=== PATIENT | female | born 1950 | race Caucasian/White ===

== ENCOUNTER 2017-11-10 07:03 | Day surgery (SDC) | END 2017-11-10 12:47 | disposition home or self-care (01) | DX: I25.10 Atherosclerotic heart disease of native coronary artery without angina pectoris (principal); R94.31 Abnormal electrocardiogram [ECG] [EKG]; Z79.899 Other long term (current) drug therapy; Z79.82 Long term (current) use of aspirin | CPT/HCPCS: 80048; 85025; 85610; 85730; 93005; 93458; C1769; C1893; G0269; J1644; J2250; J3010; J7030 ==